=== PATIENT | male | born 1965 | race Caucasian/White ===

== ENCOUNTER 2017-04-21 17:02 | Emergency (ER) | payer SELFPAY ==
[2017-04-21] MEDS: Sodium Chloride 0.9% 10 ML Syringe FLUSH PRN ×2 (18:07→19:53)
--- NOTE | 2017-04-21 18:14 | EDM.PDOC ---
<Kell Darden - Last Filed: 04/21/17 18:07> ED HPI GENERAL MEDICAL PROBLEM - General Chief Complaint: Abdominal Pain Stated Complaint: L ABDOMINAL PAIN W/SWELLING AND TENDERNESS Time Seen by Provider: 04/21/17 18:10 - History of Present Illness INITIAL COMMENTS - FREE TEXT/NARRATIVE: Patient is a 51 year old male here today for left lateral abdominal pain. He states the pain started last night and has worsened. He describes the pain as stabbing in nature and rates it a 8/10 without radiation. The pain is worse with movement and coughing. He denies previous abdominal pain episodes or abdominal surgeries. His last bowel movement was around noon today. He has associated nausea and decreased appetite without vomiting. He has not passed gas in "quite awhile" and states his "belly feels full." He has a history of GERD and kidney stones, but states this pain feels different. He denies diarrhea , bloody stools, fever, chills, SOB or chest pain. He states he consumes alcohol rarely, about 6 beers a year. Left Abdominal Pain Score (Numeric/FACES): 8 - Related Data Allergies Allergy/AdvReac Type Severity Reaction Status Date / Time No Known Allergies Allergy Verified 04/21/17 17:13 Home Meds: Home Meds . [No Known Home Meds] 04/21/17 [History] Past Medical History HEENT History: Reports: Impaired Vision Genitourinary History: Reports: Renal Calculus - Past Surgical History Musculoskeletal Surgical History: Reports: Other (See Below) Other Musculoskeletal Surgeries/Procedures:: herniated disk surgery Social & Family History - Tobacco Use Smoking Status *Q: Never Smoker Second Hand Smoke Exposure: No - Caffeine Use Caffeine Use: Reports: Coffee, Tea - Recreational Drug Use Recreational Drug Use: No ED ROS GENERAL - Review of Systems Constitutional: Reports: Decreased Appetite. Denies: Fever, Chills Respiratory: Reports: Shortness of Breath Cardiovascular: Denies: Chest Pain GI/Abdominal: Reports: Abdominal Pain, Decreased Appetite, Distension, Nausea, Vomiting. Denies: Bloody Stool, Constipation, Diarrhea, Flatus : Denies: Flank Pain, Hematuria, Pain, Urgency Musculoskeletal: Denies: Shoulder Pain ED EXAM, GI/ABD - Physical Exam Exam Limited By: No Limitations General Appearance: Alert, No Apparent Distress Throat/Mouth: Normal Inspection Respiratory/Chest: No Respiratory Distress, Lungs Clear, Normal Breath Sounds Cardiovascular: Normal Peripheral Pulses, Regular Rate, Rhythm, No Murmur GI/Abdominal Exam: Normal Bowel Sounds (hyperactive), Soft, Guarding, Tender ( LLQ and left lateral flank) Psychiatric: Normal Affect, Normal Mood Course - Vital Signs Last Recorded V/S: Last Vital Signs Temp 37.1 C 04/21/17 17:10 Pulse 103 H 04/21/17 17:10 Resp 18 04/21/17 17:10 BP 119/82 04/21/17 17:10 Pulse Ox 98 04/21/17 17:10 - Orders/Labs/Meds Labs: Laboratory Tests 04/21/17 04/21/17 04/21/17 Range/Units 18:00 18:00 18:00 WBC 6.91 (4.23-9.07) K/mm3 RBC 5.43 (4.63-6.08) M/mm3 Hgb 16.4 (13.7-17.5) gm/L Hct 45.7 (40.1-51.0) % MCV 84.2 (79.0-92.2) fl MCH 30.2 (25.7-32.2) pg MCHC 35.9 H (32.2-35.5) g/dl RDW Std Deviation 42.9 (35.1-43.9) fL Plt Count 288 (163-337) K/mm3 MPV 9.2 L (9.4-12.3) fl Neut % (Auto) 73.2 H (34.0-67.9) % Lymph % (Auto) 12.6 L (21.8-53.1) % Churchill % (Auto) 11.4 (5.3-12.2) % Eos % (Auto) 2.5 (0.8-7.0) Baso % (Auto) 0.3 (0.1-1.2) % Neut # (Auto) 5.06 (1.78-5.38) K/mm3 Lymph # (Auto) 0.87 L (1.32-3.57) K/mm3 Churchill # (Auto) 0.79 (0.30-0.82) K/mm3 Eos # (Auto) 0.17 (0.04-0.54) K/mm3 Baso # (Auto) 0.02 (0.01-0.08) K/mm3 Sodium 140 (136-145) mEq/L Potassium 3.8 (3.5-5.1) mEq/L Chloride 102 (98-107) mEq/L Carbon Dioxide 26 (21-32) mEq/L Anion Gap 15.8 H (5-15) BUN 16 (7-18) mg/dL Creatinine 1.1 (0.7-1.3) mg/dL Est Cr Clr Drug Dosing 85.24 mL/min Estimated GFR (MDRD) > 60 (>60) mL/min BUN/Creatinine Ratio 14.5 (14-18) Glucose 104 (74-106) mg/dL Calcium 9.2 (8.5-10.1) mg/dL Total Bilirubin 0.7 (0.2-1.0) mg/dL AST 14 L (15-37) U/L ALT 32 (16-63) U/L Alkaline Phosphatase 83 (46-116) U/L C-Reactive Protein 0.3 (<1.0) mg/dL Total Protein 7.6 (6.4-8.2) g/dl Albumin 3.8 (3.4-5.0) g/dl Globulin 3.8 gm/dL Albumin/Globulin Ratio 1.0 (1-2) Lipase 195 (73-393) U/L Meds: Medications Discontinued Medications Generic Name Dose Route Start Last Admin Trade Name Freq PRN Reason Stop Dose Admin Diatrizoate Meglum/Diatrizoate Sod 90 ml 04/21/17 19:09 04/21/17 19:51 Gastrografin 37% PO 04/21/17 19:10 90 ml ONETIME ONE Administration Hydromorphone HCl 0.5 mg 04/21/17 18:25 04/21/17 18:39 Dilaudid IVPUSH 04/21/17 18:26 0.5 mg ONETIME ONE Administration Sodium Chloride 1,000 mls @ 999 mls/hr 04/21/17 18:26 04/21/17 18:38 Normal Saline IV 04/21/17 19:26 999 mls/hr ONETIME ONE Administration Iopamidol 125 ml 04/21/17 19:09 04/21/17 19:51 Isovue-300 (61%) IVPUSH 04/21/17 19:10 125 ml ONETIME ONE Administration Ondansetron HCl 4 mg 04/21/17 18:25 04/21/17 18:38 Zofran IVPUSH 04/21/17 18:26 4 mg ONETIME ONE Administration Sodium Chloride 10 ml 04/21/17 17:50 04/21/17 18:07 Saline Flush FLUSH 10 ml ASDIRECTED PRN Administration Keep Vein Open Sodium Chloride 10 ml 04/21/17 19:09 04/21/17 19:53 Saline Flush FLUSH 10 ml ONETIME PRN Administration IV FLUSH Departure - Departure Disposition: Home, Self-Care 01 Clinical Impression: Constipation - Discharge Information Instructions: Constipation, Adult, [id number] Referrals: PCP,Not In Area [Primary Care Provider] - Forms: ED Department Discharge Additional Instructions: Recommend purchasing a bottle of magnesium citrate. This is available over-the- counter. Drink about half of the bottle. If you do not have a large bowel movement from the magnesium citrate, drink the second half the bottle about 8- 12 hours later. recommend purchasing MiraLAX this is available [id number]. Take this daily or every other day for normal bowel maintenance. Make sure you are drinking plenty of fluids. Follow-up with your family care provider as needed. Please return to the ER if your symptoms change or worsen. <Kanika Campbell - Last Filed: 04/23/17 13:48> ED HPI GENERAL MEDICAL PROBLEM - General Source of Information: Reports: Patient History Limitations: Reports: No Limitations - History of Present Illness INITIAL COMMENTS - FREE TEXT/NARRATIVE: Patient was initially seen by AUSTEN Del Cid. I agree with the history of present illness as documented by Kell. 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 He is from [place]. Patient reports he's never had a colonoscopy. Reports he's had back surgeries but this required a posterior approach. When Kell evaluated the patient he did not find anything for pain. When I find a short time later he did request something for pain. Location: Reports: Abdomen ED ROS GENERAL - Review of Systems Review Of Systems: See Below GI/Abdominal: Reports: Abdominal Pain (LLQ/left lateral abdomen) ED EXAM, GI/ABD - Physical Exam Exam: See Below Exam Limited By: No Limitations General Appearance: Alert, WD/WN, Moderate Distress GI/Abdominal Exam: Distended, Abnormal Bowel Sounds (hypoactive) Neurological: Alert, Oriented, Normal Cognition Psychiatric: Normal Affect, Normal Mood Skin Exam: Warm, Dry, Normal Color Course - Radiology Interpretation Free Text/Narrative:: CT abdomen and pelvis Technique: Multiple axial sections were obtained from above the dome of the diaphragm inferiorly through the pubic symphysis. Intravenous and oral contrast was utilized. Delayed images were obtained through the bladder. Comparison: No prior abdominal imaging. Findings: Small portion of the visualized lung bases shows nothing acute. Moderate sized hiatal hernia is seen. Liver shows no focal parenchymal abnormality. Spleen appears within normal limits. Adrenal glands show no nodule. Kidneys show symmetric contrast enhancement. Minimal low density lesion is noted within the right kidney measuring 4 mm which is nonspecific due to its small size but most likely represents a small cyst. Pancreas is within normal limits. Aorta shows no aneurysmal dilatation. Gallbladder contains no calcified gallstones. No retroperitoneal adenopathy is seen. No mesenteric abnormalities are seen. No pelvic mass or adenopathy is seen. Minimal colonic diverticulosis is noted without diverticulitis. Appendix is seen and is normal in size without any surrounding inflammatory change. Delayed images shows contrast within the bladder. Mild increased stool is seen within the colon. Bone window settings were reviewed which shows severe disc space narrowing at L5 -S1 with vacuum phenomena as well as posterior and anterior spurring. Degenerative apophyseal change is seen at L4-L5 and L5-S1. Anterior osteophytes seen within the lower thoracic and lumbar spine. Impression: 1. Incidental findings as noted above. Nothing acute is appreciated on CT study of the abdomen and pelvis. - Re-Assessments/Exams Free Text/Narrative Re-Assessment/Exam: 04/21/17 18:19 This patient was initially seen by AUSTEN Del Cid. I've seen the patient and agree with the history of present illness, review of systems and physical exam as document by Kell. I did appreciate hypoactive to almost absent bowel sounds during my examination. He is also in significantly more distress than when she initially saw him. I did order him some Dilaudid for pain once I saw the patient. 04/21/17 21:08 I reviewed the labs and imaging with the patient. I feel this is constipation causing his discomfort. We will discharge him home. Discharge instruction as documented. Departure - Departure Time of Disposition: 21:10 Condition: Fair
[2017-04-21] MEDS: Sodium Chloride 0.9% 1,000 ML IV ONE (18:38)
[2017-04-21] MEDS: Ondansetron 4 MG/2 ML SDV IVPUSH ONE (18:38)
[2017-04-21] MEDS: HYDROmorphone 0.5 MG/0.5 ML SYRINGE IVPUSH ONE (18:39)
[2017-04-21] MEDS: Iopamidol 612 MG/ML 150 ML Bottle IVPUSH ONE (19:51)
[2017-04-21] MEDS: Diatrizoate Meglumine/Diatrizoate Sodium 37% 120 ML Bottle PO ONE (19:51)
--- NOTE | 2017-04-21 20:15 | CT ---
CT abdomen and pelvis Technique: Multiple axial sections were obtained from above the dome of the diaphragm inferiorly through the pubic symphysis. Intravenous and oral contrast was utilized. Delayed images were obtained through the bladder. Comparison: No prior abdominal imaging. Findings: Small portion of the visualized lung bases shows nothing acute. Moderate sized hiatal hernia is seen. Liver shows no focal parenchymal abnormality. Spleen appears within normal limits. Adrenal glands show no nodule. Kidneys show symmetric contrast enhancement. Minimal low density lesion is noted within the right kidney measuring 4 mm which is nonspecific due to its small size but most likely represents a small cyst. Pancreas is within normal limits. Aorta shows no aneurysmal dilatation. Gallbladder contains no calcified gallstones. No retroperitoneal adenopathy is seen. No mesenteric abnormalities are seen. No pelvic mass or adenopathy is seen. Minimal colonic diverticulosis is noted without diverticulitis. Appendix is seen and is normal in size without any surrounding inflammatory change. Delayed images shows contrast within the bladder. Mild increased stool is seen within the colon. Bone window settings were reviewed which shows severe disc space narrowing at L5-S1 with vacuum phenomena as well as posterior and anterior spurring. Degenerative apophyseal change is seen at L4-L5 and L5-S1. Anterior osteophytes seen within the lower thoracic and lumbar spine. Impression: 1. Incidental findings as noted above. Nothing acute is appreciated on CT study of the abdomen and pelvis. Diagnostic code #2
== END 2017-04-21 21:19 | disposition home or self-care (01) ==
LOC: JD.ED 17:02
DX: K59.00 Constipation, unspecified (principal); Z87.442 Personal history of urinary calculi
CPT/HCPCS: 36415; 74177; 80053; 83690; 85025; 86140; 96361; 96374; 96375; 99284; J1170; J2405; J7040; J7050; Q9963; Q9967